=== PATIENT | male | born 1970 | race Caucasian/White ===

== ENCOUNTER 2022-12-28 14:00 | Outpatient (RCR) | payer BC, SELFPAY | END 2023-04-27 23:59 | disposition home or self-care (01) | PROVIDERS: Visit Provider Specialist | DX: M51.36 Other intervertebral disc degeneration, lumbar region (principal); M48.062 Spinal stenosis, lumbar region with neurogenic claudication; M54.9 Dorsalgia, unspecified; M25.69 Stiffness of other specified joint, not elsewhere classified; R53.1 Weakness; Z51.89 Encounter for other specified aftercare | CPT/HCPCS: 97110; 97140; 97162 ==

== ENCOUNTER 2024-11-14 12:29 | Emergency (ER) | payer OTHER, SELFPAY ==
[2024-11-14 12:39] VITALS: BP 139/103; PULSE 90; RESP 22; TEMP 36.3; O2SAT 98; BMI 34.6
--- NOTE | 2024-11-14 12:58 | ED.GENADULT ---
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 He was wearing a ball cap, but he cut the top of his head. He controlled bleeding with pressure. No loss of consciousness, no neck pain. No significant headache. He is not anticoagulated. Exam Narrative: Exam Narrative: Vital signs reviewed In general, alert, nontoxic male. Head: Normocephalic. He has an approximately 5 cm in total length laceration which is somewhat U shaped on the vertex of his scalp. Bleeding is controlled. No significant surrounding hematoma. No other visible trauma at this time although he notes some tenderness over his forehead. No deformity. Neuro: He is alert, conversant, gait stable. Const: Vital Signs, click to edit/add: Vital Signs - 24 hr 11/14/24 12:39 Temperature 97.3 F L Pulse Rate [Pulse Oximeter] 90 Respiratory Rate 22 Blood Pressure [Le ft Upper Arm] 139/103 H Pulse Oximetry 98 Oxygen Delivery Me thod Room Air Course Course ED Course: Procedure note: Wound was anesthetized with lidocaine with epinephrine and then irrigated by the nurse. No evidence of foreign body or injury to deeper structures. It does extend deep into the subcutaneous tissues of the scalp. Bleeding remains controlled. A close the wound using 4-0 nylon, a total of 7 simple interrupted superficial sutures were placed, he tolerated this well without immediate complication. On further examination of the wound after cleaning it up there is a 2nd superficial laceration adjacent which is about a cm and half, this extends just into the dermis and I do not think requires repair. Will check on his tetanus status is he is not sure. Update if not current. Suture removal in about 10 days, return for signs of infection or more severe head injury. Tetanus up-to-date. Vital Signs Vital signs: Initial Vital Signs Temperature 97.3 F L 11/14/24 12:39 Temperature Source Temporal Artery Scan 11/14/24 12:39 Pulse Rate 90 11/14/24 12:39 Respiratory Rate 22 11/14/24 12:39 Blood Pressure 139/103 H 11/14/24 12:39 Blood Pressure Mean 115 H 11/14/24 12:39 Pulse Oximetry 98 11/14/24 12:39 Oxygen Delivery Method Room Air 11/14/24 12:39 Vital Signs Temperature 97.3 F L 11/14/24 12:39 Pulse Rate 90 11/14/24 12:39 Respiratory Rate 22 11/14/24 12:39 Blood Pressure 139/103 H 11/14/24 12:39 Pulse Oximetry 98 11/14/24 12:39 Oxygen Delivery Method Room Air 11/14/24 12:39 Temperature 97.3 F L 11/14/24 12:39 Pulse Rate 90 11/14/24 12:39 Respiratory Rate 22 11/14/24 12:39 Blood Pressure 139/103 H 11/14/24 12:39 Pulse Oximetry 98 11/14/24 12:39 Oxygen Delivery Method Room Air 11/14/24 12:39 Discharge Plan Discharge Clinical Impression: Laceration of scalp Patient Disposition: Home, Self-Care Condition: Improved Instructions: Laceration (ED) Additional Instructions: Sutures should be removed in about 10 days. Return any time for signs of infection, or if you have symptoms of more severe head injury such as severe headache, vomiting, confusion etcetera. It is a good idea to keep some kind of ointment such as Aquaphor or Vaseline on the wound as it heals, this helps with healing and also makes it easier to remove the sutures when it is time. Your last tetanus shot was in 2021, so you are up-to-date. Follow Up/Referrals: Provider,Not a Local [Primary Care Provider, Family Practice] Stand Alone Forms: MyHealth Info Instructions
--- OUTSIDE RECORDS SUMMARY | 2024-11-14 13:42 | XMS_ITS | Patient Health Record ---
Author Organization [facility] Address [address] [place] [address] Care Team Providers Care Line Maintainer Name Role Phone Javi Zavala Primary Care Provider UnavailJAVI Leo Unavailable [phone] Allergies No Known Allergies Reason For Referral No Information Social History Tobacco Use: Social History Observation Description Date Details (start date - stop date) Current Smoker NA - NA Social History Tobacco Use: Social Info Question Answer Notes Tobacco use/smoking Are you a current smoker Problems Problem Type SNOMED Code ICD Code Onset Dates Problem Status W/U Status Risk Notes Problem Sensorineural hearing loss, bilateral (715490560) Bilateral sensorineural hearing loss (H90.3) Active confirmed Plan Of Treatment No Information Insurance Providers Payer Name Payer Address Payer Phone Subscriber Number Group Number Insured Name Patient Relationship to Insured Coverage Start Date Coverage End Date [facility] [address] [address] [place] [address] [id number] Javi Oscar Self - patient is the insured Medical (General) History Surgical History Surgery Date(Month/Year) L Leg L Hand
--- OUTSIDE RECORDS SUMMARY | 2024-11-14 13:42 | XMS_ITS | Clinical Summary ---
Author Organization [facility] Address [facility] [place] [address] Care Team Providers Care Pigment Presser Name Role Phone Javi Hamilton MD Primary Care Provid er Allergies No known active allergies Medications acetaminophen (TYLENOL EXTRA STRGTH) 500 mg tabletIndication s:Lumbar stenosis with neurogenic claudication Take 2 Tablets (1,000 mg) by mouth every 6 hours. Max acetaminophen dose: 4000mg in 24 hrs. 30 Tablet 07/28/2022 9:41 AM CDT 07/29/19 23 Active methocarbamoL (ROBAXIN) 750 mg tabletIndication s:Lumbar stenosis with neurogenic claudication Take 1 Tablet (750 mg) by mouth every 6 hours if needed for Muscle Spasm. 30 Tablet 07/28/2022 9:41 AM CDT 07/29/19 23 Active oxyCODONE (ROXICODONE) 5 mg immediate release tabletIndication s:Lumbar stenosis with neurogenic claudication Take 1-2 Tablets (5-10 mg) by mouth every 4 hours if needed for Pain (First choice for severe pain.). 20 Tablet 07/28/2022 9:41 AM CDT 07/29/19 23 Active polyethylene glycoL (MIRALAX) 17 gram/scoop powderIndication s:Lumbar stenosis with neurogenic claudication Take 1 scoop (17 g) by mouth or nasogastric tube once daily if needed for Constipation. 510 g 07/28/2022 9:41 AM CDT 07/29/19 23 Active WalkerIndication s:Lumbar stenosis with neurogenic claudication for home use. 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 Not on file Not on file Not on file Obstetrics History Last Filed Vital Signs Vital Sign Reading Time Taken Comments Blood Pressure 148/73 07/28/2022 8:23 AM CDT Pulse 98 07/28/2022 8:23 AM CDT Temperature 36.8 C (98.3 F) 07/28/2022 8:23 AM CDT Respiratory Rate 17 07/28/2022 8:23 AM CDT Oxygen Saturation 94% 07/28/2022 8:23 AM CDT Inhaled Oxygen Concentration - - Weight 109.3 kg (241 lb) 07/27/2022 8:20 AM CDT Height 185.4 cm (6' 1) 07/27/2022 8:20 AM CDT Body Mass Index 31.8 07/27/2022 8:20 AM CDT Plan of Treatment Health Maintenance Due Date Last Done Comments Tetanus booster 11/02/1983 Depression screening for age 12+ 1984 HIV for age 15-65 11/02/1987 BMI (ht and wt on same day) for age 18+ 1990 Hepatitis C screening for age 18-79 1990 Hepatitis B series for 19+ (1 of 3 - 19+ 3-dose series ) 11/02/1991 Colonoscopy through age 75 2017 Lipids for age 45-75 2017 Pneumococcal series for age 50+ (1 of 1 - PCV) 023 Zoster (shingles) series for age 50+ (1 of 2) 11/02/19 23 COVID-19 vaccine series ( - 2023- season) Influenza Vaccine (#1) 2024 RSV vaccine for adults or pr egnancy (1 - 1-dose 75+ series) 11/02/2047 Insurance BLUE CROSS OF NON-SC-ITS Advance Directives * Full Code (Latest Code Status on File) Date Activated Date Inactivated Comments 07/27/2022 1:54 PM 07/28/2022 4:02 PM Question Answer Comments Code Status Discussion: Unable to Assess Preferences, Provider to review later Care Teams Pigment Presser Relationship Specialty Start Date End Date Javi Hamilton MD [address] [place] [address] PCP - General Family Practice 07/13/22
--- OUTSIDE RECORDS SUMMARY | 2024-11-14 13:42 | XMS_ITS | Clinical Summary ---
Author Organization [facility] Address [address] [place] [address] Care Team Providers Care Steel Pickler Name Role Phone Unavailable Primary Care Provider Unavailabl e Source Comments You are receiving this document as you are listed as the primary care provider,follow-up provider, or the patient has been referred to you for consultation.This is in compliance with the Medicare andMedicaid EHR Incentive Program,which states Providers who transition their patient to another setting of careor provider of care or refers their patient to another provider of care shouldprovide summary care record for each transition of care or referral. [employer] Medications No known medications Active Problems Problem Noted Date Diagnosed Date LEFTY (obstructive sleep apnea) 08/18/2023 Encounters Date Type Department Care Team Description 09/02/2024 7:00 PM CDT Ancillary Procedure [facility] Radiology MRI [address] [facility] [place] [address] Javi Hamilton MD Right shoulder pain, unspecified chronicity from Last 3 Months Social History Tobacco Use Types Packs/Day Years Used Date Smoking Tobacco: Never Assessed Sex and Gender Information Value Date Recorded Sex Assigned at Not on file Legal Sex Male 5:34 AM CDT Gender Identity Not on file Sexual Orientation Not on file Plan of Treatment Health Maintenance Due Date Last Done Comments Colon Cancer Screening Plan Due 1972 Hep C Screening (Preventive Services) 1972 PSA Screening Discussion 1972 HIV Screening (Preventive Services) 1988 Adult Preventive Visit 1990 HepB Vaccine (1) 11/02/1991 Cholesterol 11/02/2007 Pneumococcal Vaccine 50+ Yrs (1 of 1 - PCV) 2022 Zoster/Shingles Vaccine (1 o f 2) 2022 COVID-19 Vaccine (1 - 2023-2 5 season) 2024 Influenza Vaccine (#1) 2024 11/15/2011 DTaP/Tdap/Td Vaccine (3 - Tdap) 10/27/2031 10/26/2021, 12/03/2011 HepA Vaccine Aged Out No longer eligi ble based on patient's age to complete this topic Hib Vaccine Aged Out No longer eligi ble based on patient's age to complete this topic IPV (Polio) Vaccine Aged Out No longe r eligible based on patient's age to complete this topic MCV4 Vaccine Aged Out No longer eligi ble based on patient's age to complete this topic Meningococcal B Vaccine Aged Out No l onger eligible based on patient's age to complete this topic Procedures Procedure Name Priority Date/Time Associated Diagnosis Comments MR SHOULDER RT WO IV CONT Routine 09/02/2024 6:56 PM CDT Right shoulder pain, unspecified chronicity from Last 3 Months Results * MR Shoulder Rt WO IV Cont (09/02/2024 6:56 PM CDT) Anatomical Region Laterality Modality Shoulder, Skeletal, Arm, Upper Extremity, Other, MSK Right Magnetic Resonance Impressions 09/03/2024 8:38 AM CDT 1. 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 2. Mild supraspinatus and subscapularis tendinopathy with no rotator cuff tear. 3. Mild tendinopathy of the intra-articular long head biceps tendon. Signed by: Chance Diaz 09/03/2024 8:38 AM Narrative 09/03/2024 8:38 AM CDT EXAM: MR SHOULDER RT WO IV CONT INDICATION: Right shoulder pain COMPARISON: None. TECHNIQUE: Routine MRI of the right shoulder was performed without contrast. 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 There is no significant thickening of the coracoacromial or coracohumeral ligaments. There is no significant narrowing of the subacromial outlet or coracohumeral distance. ROTATOR CUFF: Mild supraspinatus and subscapularis tendinopathy with no rotator cuff tear. There is no atrophy of the rotator cuff muscles. SUBACROMIAL/SUBDELTOID BURSA: Normal. GLENOHUMERAL JOINT: No chondral defect. Small marginal osteophytes. There is no significant joint effusion. No osteocartilaginous bodies are identified. LONG HEAD OF THE BICEPS TENDON/GLENOID LABRUM: Mild tendinopathy of the intra-articular long head biceps tendon. The biceps-labral anchor is intact. There is no evidence of labral tear. MARROW AND SOFT TISSUES: There is a subcentimeter well-circumscribed T2 hyperintense focus in the base of the acromion of the scapula on sagittal image 11 and coronal image 9 which has a thin sclerotic margin. This is most compatible with a small benign fibro-osseous lesion. No bone marrow signal abnormality otherwise. There is no soft tissue mass. Procedure Note Chance Diaz MD - 09/03/2024 EXAM: MR SHOULDER RT WO IV CONT INDICATION: Right shoulder pain COMPARISON: None. TECHNIQUE: Routine MRI of the right shoulder was performed without contrast. FINDINGS: CORACOACROMIAL ARCH/AC JOINT: Findings of chronic grade 3 AC separationincluding widening of the AC interval, chronic appearing disruption of thecoracoclavicular ligaments, and superior displacement of the clavicularhead in relation of the acromion. There is no significant thickening ofthe coracoacromial or coracohumeral ligaments. There is no significantnarrowing of the subacromial outlet or coracohumeral distance. ROTATOR CUFF: Mild supraspinatus and subscapularis tendinopathy with norotator cuff tear. There is no atrophy of the rotator cuff muscles. SUBACROMIAL/SUBDELTOID BURSA: Normal. GLENOHUMERAL JOINT: No chondral defect. Small marginal osteophytes.There is no significant joint effusion. No osteocartilaginous bodies areidentified. LONG HEAD OF THE BICEPS TENDON/GLENOID LABRUM: Mild tendinopathy of theintra-articular long head biceps tendon. The biceps-labral anchor isintact. There is no evidence of labral tear. MARROW AND SOFT TISSUES: There is a subcentimeter well-circumscribed [id number] focus in the base of the acromion of the scapula on sagittalimage 11 and coronal image 9 which has a thin sclerotic margin. This ismost compatible with a small benign fibro-osseous lesion. No bone marrowsignal abnormality otherwise. There is no soft tissue mass. IMPRESSION 1. 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 2. Mild supraspinatus and subscapularis tendinopathy with no rotator cufftear. 3. Mild tendinopathy of the intra-articular long head biceps tendon. Signed by: Chance Diaz 09/03/2024 8:38 AM Javi Hamilton MD RAD MRI Final Resu lt from Last 3 Months Insurance [facility]
== END 2024-11-14 13:59 | disposition home or self-care (01) ==
PROVIDERS: Emergency Provider Emergency Medicine
DX: S01.01XA Laceration without foreign body of scalp, initial encounter (principal); W22.8XXA Striking against or struck by other objects, initial encounter
CPT/HCPCS: 12002; 99283; 99284